=== PATIENT | female | born 1965 | race Hispanic/Latino ===

== ENCOUNTER 2021-01-25 18:56 | Emergency (ER) | payer SELFPAY ==
[2021-01-25 19:21] VITALS: BP 144/83
[2021-01-25] MEDS ORDERED: IBUPROFEN 800 MG TAB PO ONE (19:21)
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
[2021-01-25] MEDS ORDERED: IBUPROFEN 800 MG TAB ONE (21:30)
== END 2021-01-25 20:15 | disposition home or self-care (01) ==
LOC: ED 18:56
DX: S49.91XA Unspecified injury of right shoulder and upper arm, initial encounter (principal); F32.9 Major depressive disorder, single episode, unspecified; F41.9 Anxiety disorder, unspecified; F17.200 Nicotine dependence, unspecified, uncomplicated; Z88.2 Allergy status to sulfonamides; Z79.899 Other long term (current) drug therapy; Z98.890 Other specified postprocedural states; Y04.8XXA Assault by other bodily force, initial encounter; Y93.89 Activity, other specified; Y92.89 Other specified places as the place of occurrence of the external cause; Y99.8 Other external cause status

== ENCOUNTER 2021-06-17 10:05 | Emergency (ER) | payer SELFPAY ==
[2021-06-17 11:23] VITALS: BP 145/77
[2021-06-17] MEDS ORDERED: IPRATROPIUM 0.02% NEBU 2.5 ML IH ONE (12:39)
[2021-06-17] MEDS ORDERED: ALBUTEROL 2.5 MG/3 ML NEBU IH ONE (12:39)
[2021-06-17] MEDS ORDERED: predniSONE 20 MG TAB PO ONE (12:41)
--- NOTE | 2021-06-17 12:46 | Emergency Department Report ---
HPI - General Chief Complaint: Upper Respiratory Infection Time Seen by Provider: 06/17/21 12:29 - HPI HPI: MSE 6 The patient is a 55-year-old female present with chief complaint of cough. The patient states she has had a cough for approximate 1 month. Patient states her cough is mostly dry but occasionally productive. Patient admits to shortness of breath and wheezing in addition to her symptoms. Patient denies history of fever or rhinorrhea. The patient states she has been vaccinated against Covid receiving her [employer] vaccine November 2020 and her booster shot April 2021 ED Past Medical Hx - Past Medical History Previous Medical History?: Yes Hx Psychiatric Treatment: Yes (PTSD Depression Anxiety) - Surgical History Past Surgical History?: Yes Additional Surgical History: Csection x 2 - Family History Family history: no significant - Social History Smoking Status: Current Every Day Smoker (1 pack/day. Patient states she has been smoking since age 13) Substance Use Type: None (Denies illicit drug), Alcohol (Occasional) - Medications Home Medications: Home Medications Medication Instructions Recorded Confirmed Last Taken Type Lidocaine [Lidoderm] 1 each TP BID #20 adh..patch 01/25/21 Unknown Rx Naproxen 500 mg PO BID #20 tablet 01/25/21 Unknown Rx ED Review of Systems ROS: Stated complaint: COUGHING [id number],SOB Other details as noted in HPI Constitutional: denies: fever Eyes: denies: eye pain ENT: denies: throat pain Respiratory: cough, shortness of breath, wheezing Cardiovascular: denies: chest pain Endocrine: no symptoms reported Gastrointestinal: denies: abdominal pain Genitourinary: denies: dysuria Musculoskeletal: denies: back pain Neurological: denies: headache Physical Exam - Physical Exam Vital Signs: Vital Signs 06/17/21 11:20 Temperature 97.9 F Pulse Rate 61 Respiratory 16 Rate Blood Pressure 145/77 [Left] O2 Sat by Pulse 99 Oximetry Physical Exam: GENERAL: The patient is well-developed well-nourished female lying on stretcher not appearing to be in acute distress. [] HEENT: Normocephalic. Atraumatic. Extraocular motions are intact. Patient has moist mucous membranes. NECK: Supple. Trachea midline CHEST/LUNGS: Clear to auscultation. Occasional faint expiratory wheeze HEART/CARDIOVASCULAR: Regular. There is no tachycardia. There is no gallop rub or murmur. ABDOMEN: Abdomen is soft, nontender. Patient has normal bowel sounds. There is no abdominal distention. SKIN: There is no rash. There is no edema. There is no diaphoresis. NEURO: The patient is awake, alert, and oriented. The patient is cooperative. The patient has no focal neurologic deficits. The patient has normal speech. GCS 15 MUSCULOSKELETAL: There is no evidence of acute injury. ED Course Vital Signs 06/17/21 11:20 Temperature 97.9 F Pulse Rate 61 Respiratory 16 Rate Blood Pressure 145/77 [Left] O2 Sat by Pulse 99 Oximetry ED Medical Decision Making - Radiology Data Radiology results: report reviewed (Chest x-ray), image reviewed (Chest x-ray) interpreted by me: Chest x-ray-no definite focal infiltrates, no pneumothorax [facility] [address] [place] [address] XRay Report Signed Patient: HILARIA SLADE MR#: [id number] : 1965 Acct:[id number] Age/Sex: 55 / F ADM Date: 06/17/21 Loc: ED Attending Dr: Ordering Physician: KEON REY MD Date of Service: 06/17/21 Procedure(s): XR chest routine 2V Accession Number(s): [id number] cc: KEON REY MD Fluoro Time In Minutes: CHEST 2 VIEWS INDICATION / CLINICAL INFORMATION: Cough, shortness of breath. COMPARISON: None available. FINDINGS: SUPPORT DEVICES: None. HEART / MEDIASTINUM: No significant abnormality. LUNGS / PLEURA: No significant pulmonary or pleural abnormality. No pneumothorax. ADDITIONAL FINDINGS: No significant additional findings. IMPRESSION: 1. No acute findings. Signer Name: Petros Schulz MD Signed: 06/17/2021 12:53 PM Workstation Name: [id number] Transcribed By: LISA Dictated By: Petros Schulz MD Electronically Authenticated By: Petros Schulz MD Signed Date/Time: 06/17/21 125 DD/ 52 TD/TT: Print Cancel - Differential Diagnosis Bronchitis, COPD, pneumonia, Covid Critical care attestation.: If time is entered above; I have spent that time in minutes in the direct care of this critically ill patient, excluding procedure time. ED Disposition Clinical Impression: Shortness of breath Disposition: 07 LEFT AWOL/ELOPED Is pt being admited?: No Does the pt Need Aspirin: No Condition: Undetermined Time of Disposition: 16:17 (Patient eloped/unable to find patient)
--- NOTE | 2021-06-17 12:57 | XRay Report ---
CHEST 2 VIEWS INDICATION / CLINICAL INFORMATION: Cough, shortness of breath. COMPARISON: None available. FINDINGS: SUPPORT DEVICES: None. HEART / MEDIASTINUM: No significant abnormality. LUNGS / PLEURA: No significant pulmonary or pleural abnormality. No pneumothorax. ADDITIONAL FINDINGS: No significant additional findings. IMPRESSION: 1. No acute findings. Signer Name: Petros Schulz MD Signed: 06/17/2021 12:53 PM Workstation Name: [id number]
== END 2021-06-17 16:30 | disposition left against medical advice (07) ==
LOC: ED 10:05
DX: R06.02 Shortness of breath (principal); R05.9 Cough, unspecified; R06.2 Wheezing
CPT/HCPCS: 36415; 71046; 87040; 94644; 99283